=== PATIENT | male | born 1960 | race Caucasian/White ===

== ENCOUNTER 2020-10-22 01:46 | Emergency (ER) | payer BC, SELFPAY ==
[2020-10-22 01:49] VITALS: BP 166/93; PULSE 65; RESP 20; TEMP 36.5; O2SAT 100
--- NOTE | 2020-10-22 02:16 | ED.GENADUL_ITS ---
Discharge Plan Disposition Patient Disposition: HOME Condition: Good Discharge Details Clinical Impression: Biceps tendinitis Primary Care Provider: None,None ED Provider: Thierry Peres Home Meds and New Rx's Prescriptions: New prednisone 50 MG tablet 50 mg PO DAILY Qty: 5 RF: 0 Continued levothyroxine 175 mcg Tablet 175 mcg PO DAILY RF: 0 ibuprofen 200 mg Tablet 200 mg PO Q6H PRNRF: 0 Discharge Instructions Instructions: Tendinitis (ED) Additional Instructions: At this time you have inflammation of your bicep tendon. This is likely caused by wear and tear from old injuries in time. Please take the steroid prednisone as directed. Please take maximum dose ibuprofen 800 mg every 6 hours and maximum dose Tylenol 1000 mg every 6 hours as needed for pain. Do not do this for an extended. As this could cause irritation of your stomach. Please use ice as needed to be affected shoulder. Please take the pain pill [place] only as needed for breakthrough pain. He does have some Tylenol in it, so only take 500 mg of Tylenol when taking the pain pill. You will likely need a steroid injection to the area if the oral steroids does not improve your symptoms. Please follow-up closely with the senior computer specialist. We have placed a a referral to them and their office should contact you. If you notice any worsening of your symptoms, or any new symptoms such as vomiting, diarrhea, fever, chills, shortness of breath, chest pain, numbness, weakness, or fainting , please return immediately to the emergency department for reevaluation. Please follow up with your primary care provider as soon as possible for reassessment and reevaluation. As always, it was a pleasure participating in your medical care today. Referrals: Dejuan Varma MD [ [facility] STAFF PHYSICIAN] - Amador Billy MD [ [facility] STAFF PHYSICIAN] - Medical Decision Making This is a pleasant 60-year-old male with a past medical history of hypothyroidism who presents today for evaluation of left shoulder pain. Patient states throughout his life he has often had a mild twinge of pain in his left shoulder with his after he is performing activities. Over the last few weeks he has noticed that he has become somewhat more painful with movement, however 3 days ago the pain when he woke up from sleep was notably severe, and has not remitted since then. He denies any injury or trauma recently. He denies any j erking motions that brought it about. The day before the pain got severe he was playing his guitar without significant pain or discomfort. Pain is present on the anterior aspect of the shoulder. It is only worsened with movement or palpation. He denies any fever or chills. He denies any IV or illicit drug use ever. He denies any needle injections. He denies any chest pain or shortness of breath. She has taken Tylenol and Motrin to help with the pain but this is only but mild. 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 He states that this is impacted his ability to work normally. He normally uses his right hand from his dominant activities. Physical exam demonstrates notable focal tenderness over the biceps tendon long head. Notable pain with the speeds test. Less pain with the Yergason's test. Range of motion of the left shoulder is limited secondary to pain. Movements of abduction, anterior flexion, internal and external rotation notably worsen the pain focally over the biceps tendon. No redness warmth or significant swelling to suggest an infectious etiology. No evidence of a septic shoulder. Patient denies fever or chills. Patient denies any trauma otherwise, bedside ultrasound shows an intact biceps tendon: With a small amount of edema around the tendon. No evidence of complete tendon rupture. Differential at this time is highest for biceps tendinitis, and partial tear. Did administer a small amount of local bupivacaine which did not improve his symptoms significantly. Will give oral prednisone and recommend continued NSAIDs. Will give 4 [place] pills for home use as needed. No indication for x-ray images at this time there is no traumatic component, no bony tenderness. No tenderness over the AC joint. No evidence of dislocation. Recommend close follow-up with senior computer specialist. Will place referral. Discussed red flags which to return. I have extensively reviewed the treatment plan and discharge instructions with the patient. I have addressed all patient concerns at this time. The patient was made aware of what symptoms to monitor for that would warrant a return to the emergency department. Discussed the plan with the patient, they demonstrate verbal understanding and agreement with our assessment and plan at this time. The documentation in this chart was dictated using [employer] dictation software. Please excuse any dictation errors. HPI General Date/Time Provider Initiated Documentation: 10/22/20 01:47 . HPI Narrative: This is a pleasant 60-year-old male with a past medical history of hypothyroidism who presents today for evaluation of left shoulder pain. Patient states throughout his life he has often had a mild twinge of pain in his left shoulder with his after he is performing activities. Over the last few weeks he has noticed that he has become somewhat more painful with movement, however 3 days ago the pain when he woke up from sleep was notably severe, and has not remitted since then. He denies any injury or trauma recently. He denies any jerking motions that brought it about. The day before the pain got severe he was playing his guitar without significant pain or discomfort. Pain is present on the anterior aspect of the shoulder. It is only worsened with movement or palpation. He denies any fever or chills. He denies any IV or illicit drug use ever. He denies any needle injections. He denies any chest pain or shortness of breath. She has taken Tylenol and Motrin to help with the pain but this is only but mild. 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 He states that this is impacted his ability to work normally. He normally uses his right hand from his dominant activities. Related Data Home Medications Medication Instructions Recorded Confirmed ibuprofen 200 mg PO Q6H PRN 10/22/20 10/22/20 levothyroxine 175 mcg PO DAILY 10/22/20 10/22/20 prednisone 50 mg PO DAILY #5 tab 10/22/20 Previous Rx's Medication Instructions Recorded prednisone 50 mg PO DAILY #5 tab 10/22/20 Allergies Allergy/AdvReac Type Severity Reaction Status Date / Time No Known Allergies Allergy Unverified 10/22/20 01:53 General Stated Complaint: Orthopedic NORTH: 4 Review of Systems All systems reviewed & are unremarkable except as noted in HPI and below PFSH Social History Smoking/Tobacco Use Status: Never Smoking risk assessment performed?: Yes Alcohol Intake: current Alcohol Intake frequency: 0-2 drinks per day Alcohol type: beer Drug use: Socially Substance use type: marijuana Do you feel safe at home: Yes Do you feel safe in your relationship?: Yes Exam Narrative Exam Narrative: 1.Const: Well-nourished, Well-developed, appearing stated age 2.Eyes: PERRL, no conjunctival injection, and symmetrical lids. 3.ENT: Atraumatic external nose and ears. Moist MM. Neck: Symmetric, trachea midline, No thyromegaly. 4.CVS: +S1/S2, No murmurs or gallops. Peripheral pulses 2+ and equal in all extremities. Brisk capillary refill in all extremities. 5.RESP: Unlabored respiratory effort. Clear to auscultation bilaterally. No wheezes rales or rhonchi 6.GI: Soft, Nontender/Nondistended, No hepatosplenomegaly. No guarding or rebound. 7.MSK: Left shoulder demonstrates no warmth or significant redness. No evidence of notable inflammation. No evidence of a septic joint. Patient has focal tenderness over the bicep tendon in the shoulder, particularly the long head. Pain is notably worse and severe with the speeds test. Yergason's test appears to demonstrate less pain. Patient has notable pain in general with anterior flexion of the shoulder, abduction, internal and external rotation. The other movements of the shoulder do not have significant pain associated with them. Flexion at the elbow actively notably worsens pain, strength appears intact though. 8.Skin: Warm, Dry. No rashes or lesions. 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 Sensation grossly intact, no focal neurologic deficits. 10.Psych: (AAO) x3. Appropriate mood and affect Course Vital Signs Vital signs: Vital Signs Temperature 36.5 C 10/22/20 01:49 Pulse 65 10/22/20 01:49 Respiratory Rate 20 10/22/20 01:49 Blood Pressure 166/93 H 10/22/20 01:49 Pulse Oximetry 100 10/22/20 01:49 Temperature 36.5 C 10/22/20 01:49 Temperature Source Skin 10/22/20 01:49 Pulse 65 10/22/20 01:49 Respiratory Rate 20 10/22/20 01:49 Respiratory Effort Non-Labored 10/22/20 01:53 Blood Pressure 166/93 H 10/22/20 01:49 Pulse Oximetry 100 10/22/20 01:49 Pain Level 7 10/22/20 01:53
[2020-10-22] MEDS: predniSONE 20 MG TAB 60 MG PO (02:23)
== END 2020-10-22 02:28 | disposition home or self-care (01) ==
LOC: ER 02:38
PROVIDERS: Emergency Provider Student in an Organized Health Care Education/Training Program
DX: M75.22 Bicipital tendinitis, left shoulder (principal)
CPT/HCPCS: 99283; J7512

== ENCOUNTER 2021-05-01 08:55 | Outpatient (REF) | payer BC, SELFPAY ==
[2021-05-01 15:33] LABS: Anion Gap 10.6 mmol/L (3-11); BUN 20 mg/dL (7-18); CO2 27.4 mmol/L (21.0-32.0); CREATININE 0.9 mg/dL (0.70-1.30); Calcium 8.7 mg/dL (8.5-10.1); Chloride 102 mmol/L (98-107); Glucose 92 mg/dL (74-106); Potassium 4.3 mmol/L (3.5-5.1); Sodium 140 mmol/L (136-145); TSH 2.67 uIU/mL (0.36-3.74)
== END 2021-05-01 08:56 | disposition home or self-care (01) ==
LOC: NCHCN 08:55
PROVIDERS: Visit Provider Nurse Practitioner Family
DX: E03.9 Hypothyroidism, unspecified (principal); R10.31 Right lower quadrant pain; R10.32 Left lower quadrant pain
CPT/HCPCS: 80048; 84443